=== PATIENT | male | born 1975 | race Caucasian/White ===

== ENCOUNTER 2017-01-23 18:30 | Emergency (ER) | payer OTHER ==
--- NOTE | ~2017-01-23 | CR230 ---
[facility]. [facility] A Service of [facility] RADIOLOGY TEXT RESULTS PATIENT: CHAYITO ERIC LOCATION: SED : 73 UNIT #: [id number] AGE: [address]: Trisha Chavis APRN SEX: M ORDER DR: [id number] [place] [id number] E MR#: [id number] Acc #: [id number] NAME: CHAYITO ERIC : 1975 SEX: M STUDY DATE/TIME: 01/23/2017 18:30 UNIT: SED ROOM: STUDY DESCRIPTION: CR Shoulder Min 2 View Rt Attending Physician: Trisha Chavis A.P.R.N. Ordering Physician: Trisha Chavis A.P.R.N. Primary Care Physician: Giles Villa M.D. MEDICAL IMAGING REPORT This report is preliminary unless electronic signature is present. EXAM Right shoulder 3 views HISTORY Injured at work 03:00 p.m. today, restraining patient. FINDINGS Routine views of the right shoulder demonstrate faint calcifications off the inferior aspect of the acromion. These may be degenerative in nature but could be associated with calcific tendinitis or bursitis. No fracture or dislocation. Mild AC joint arthropathy. Dictated by... Quyen Trevino M.D. THIS IS AN ELECTRONICALLY VERIFIED REPORT Quyen Trevino M.D. at 01/24/2017 2:02 PM LYNNETTE/lita TD: 01/23/2017 21:52 JOB #: [id number] MEDICAL IMAGING REPORT Page 1 of 1
[~2017-01-23 18:30] MED LIST: ADVICOR 5001 BOTTL1 PO; ALLOPURINOL300 MG PO; AMITRIPTYLINE H25 MG PO; BP; CHOLESTEROL PILL; DEXILANT60 MG PO; IBUPROFEN PO; INDOMETHACIN50 MG PO; LISINOPRIL PO; PRILOSEC PO; QUESTRAN PACK4 G/PK1 PO; ZOFRAN ODT4 MG PO; [UNRECOGNIZED DRUG - REMARK]; [UNRECOGNIZED DRUG - REMARK]
== END 2017-01-23 19:48 | disposition home or self-care (01) ==
LOC: SED 18:30
DX: S46.911A Strain of unspecified muscle, fascia and tendon at shoulder and upper arm level, right arm, initial encounter (principal); I10 Essential (primary) hypertension; E78.5 Hyperlipidemia, unspecified; F17.200 Nicotine dependence, unspecified, uncomplicated; Z88.0 Allergy status to penicillin; Z88.5 Allergy status to narcotic agent; Z79.899 Other long term (current) drug therapy; X50.9XXA Other and unspecified overexertion or strenuous movements or postures, initial encounter; Y92.69 Other specified industrial and construction area as the place of occurrence of the external cause; Y99.0 Civilian activity done for income or pay
CPT/HCPCS: 73030; 96372; 99283; J2360

== ENCOUNTER 2017-03-21 19:18 | Emergency (ER) | payer OTHER ==
--- NOTE | ~2017-03-21 | CR126 ---
[facility] A Service of [facility] [place] RADIOLOGY TEXT RESULTS PATIENT: CHAYITO ERIC LOCATION: SED : 73 UNIT #: [id number] AGE: [address]: Aleksandar Ye MD SEX: M ORDER DR: [id number] [place] [id number] E MR#: [id number] Acc #: [id number] NAME: CHAYITO ERIC : 1975 SEX: M STUDY DATE/TIME: 03/21/2017 19:49 UNIT: SED ROOM: STUDY DESCRIPTION: CR Foot Complete Min 3 View Lt Attending Physician: Aleksandar Ye M.D. Ordering Physician: Aleksandar Ye M.D. Primary Care Physician: Giles Villa M.D. MEDICAL IMAGING REPORT This report is preliminary unless electronic signature is present. EXAM Left foot series INDICATIONS Left foot pain, swelling and redness, particularly the left fifth digit for the past month with no known injury. TECHNIQUE 3 views of the left foot. COMPARISON 09/07/2014. FINDINGS No acute fracture or dislocation. IMPRESSION No acute findings. Dictated by... Pillo Coker M.D. THIS IS AN ELECTRONICALLY VERIFIED REPORT Pillo Coker M.D. at 03/21/2017 10:24 PM EED/pcl TD: 03/21/2017 22:21 JOB #: [id number] MEDICAL IMAGING REPORT [facility] A Service of [facility] [place] RADIOLOGY TEXT RESULTS PATIENT: CHAYITO ERIC LOCATION: SED : 74 UNIT #: [id number] AGE: [address]: Aleksandar Ye MD SEX: M ORDER DR: Page 1 of 1
== END 2017-03-21 20:33 | disposition home or self-care (01) ==
LOC: SED 19:18
DX: R58 Hemorrhage, not elsewhere classified (principal); I10 Essential (primary) hypertension; K21.9 Gastro-esophageal reflux disease without esophagitis; F17.200 Nicotine dependence, unspecified, uncomplicated
CPT/HCPCS: 73630; 99283